=== PATIENT | female | born 1945 | race Caucasian/White ===

== ENCOUNTER → 2018-12-07 13:58 | Outpatient (CLI) | payer OTHER, SELFPAY ==
--- NOTE | 2018-12-07 | DI.MG.S_ITS ---
BILATERAL DIGITAL SCREENING MAMMOGRAM 3D/2D WITH CAD: 12/07/2018 CLINICAL: Routine screening. Personal history of right breast cancer. Comparison is made to exams dated: 06/03/2017 mammogram, 10/11/2014 mammogram, and 06/22/2013 mammogram - [facility]. There are scattered fibroglandular elements in both breasts. Current study was also evaluated with a Computer Aided Detection (CAD) system. There are benign post operative findings in the right breast. There also are benign calcifications in both breasts. No significant masses, calcifications, or other findings are seen in either breast. There has been no significant interval change. IMPRESSION: There is no mammographic evidence of malignancy. A 1 year screening mammogram is recommended. This exam was interpreted at Station ID: [id number]. NOTE: For mammograms, a report in lay terms will be sent to the patient. Approximately 15% of breast malignancies will not be visualized mammographically. In the management of a palpable breast mass, a negative mammogram must not discourage biopsy of a clinically suspicious lesion. Electronically Signed By: Luis joe/ry:12/07/2018 16:04:22 letter sent: Normal Exam ACR BI-RADS Category 2: Benign Finding(s) 3342F
== END ==
PROVIDERS: PCP Family Medicine; Visit Provider Family Medicine
DX: Z12.31 Encounter for screening mammogram for malignant neoplasm of breast (principal); Z85.3 Personal history of malignant neoplasm of breast
CPT/HCPCS: 77063; 77067

== ENCOUNTER 2019-10-08 17:14 | Emergency (ER) | payer MEDICARE, OTHER, SELFPAY ==
[2019-10-08 17:27] VITALS: BP 202/94; PULSE 75; RESP 16; TEMP 36.9; O2SAT 97
[2019-10-08 17:30] VITALS: BP 185/88; PULSE 73; RESP 16; O2SAT 98
--- NOTE | 2019-10-08 17:52 | DI.CT.S_ITS ---
PROCEDURE: CT ABDOMEN PELVIS W CON INDICATIONS: generalized abd pain, fever, hx hystrectomy TECHNIQUE: After the administration of intravenous contrast, 5 mm thick sections acquired from the diaphragm to the symphysis. 5 mm coronal and sagittal reformats were acquired. For radiation dose reduction, the following was used: automated exposure control, adjustment of mA and/or kV according to patient size. COMPARISON: None. FINDINGS: Image quality: Excellent. ABDOMEN: Lung bases: Lung bases are clear. Heart size is normal. Solid organs: Liver is normal in size and enhancement. Occasional tiny cysts. Gallbladder is partially decompressed.. Biliary system is non dilated. Pancreas enhances normally. Spleen is normal in size and enhancement. No adrenal nodules. Kidneys demonstrate normal size and enhancement, without hydronephrosis. Nonobstructing 6 mm ovoid calcification in the right upper pole. Peritoneum and bowel: There is a normal appendix in the right lower quadrant. Normal amount of solid stool is present in the proximal colon. Multiple diverticula are present in the descending colon. There is a short segment of focal pericolonic inflammation in the proximal sigmoid colon where there is also eccentric wall thickening present. A few diverticula are present in this area. No definite extraluminal gas. No associated fluid collection. Small bowel loops are nonobstructed. The stomach is partially decompressed. Nodes and vessels: No retroperitoneal or mesenteric adenopathy by size criteria. Aorta and inferior vena cava are normal in size. Miscellaneous: There is small fat containing umbilical hernia. PELVIS: Genitourinary: Bladder wall thickness is normal. The uterus is diminutive, age-appropriate. Miscellaneous: No inguinal hernias or adenopathy. Trace amount of free fluid is present posteriorly in the pelvis. Bones: No suspicious bony lesions. No vertebral body compression fractures. Degenerative scoliosis of lumbar spine. IMPRESSION: 1. Short segment of inflammatory change involving proximal sigmoid colon. This is likely secondary to diverticulitis, although an inflammatory process or carcinoma is not excluded. Colonoscopy is recommended after the patient's acute illness resolves. 2. Diverticulosis is present elsewhere in the colon. 3. Nonobstructing 6 mm right intrarenal calcification. Dictated by: Camelia Farr M.D. on 10/08/2019 at 18:43 Approved by: Camelia Farr M.D. on 10/08/2019 at 18:54
[2019-10-08 17:54] LABS: Add Manual Diff / Slide Review NO; Basophils Absolute Auto 100 /uL (0-100); Basophils Percent Auto 0.9 % (0-2); Eosinophils Absolute Auto 100 /uL (0-450); Eosinophils Percent Auto 1.2 % (2-4); Hematocrit 38.1 % (36-46); Hemoglobin 12.9 g/dL (12.0-16.0); Lymphocytes Absolute Auto 1900 /uL (1100-4500); Lymphocytes Percent Auto 21.5 % (25-40); Mean Corpuscular HGB Conc 33.7 % (30-36); Mean Corpuscular Hemoglobin 30.2 PG (26-34); Mean Corpuscular Volume 89.7 fL (80-100); Monocytes Absolute Auto 500 /uL (0-900); Monocytes Percent Auto 5.7 % (3-14); Neutrophils Absolute Auto 6200 /uL (1500-7000); Neutrophils Percent Auto 70.7 % (50-75); Platelet Count 207 X10^3/uL (150-400); Red Blood Cell Count 4.25 X10^6/uL (4.0-5.2); Red Cell Distribution Width 13.5 % (11.6-14.8); White Blood Cell Count 8.8 X10^3/uL (4.5-11.0)
[2019-10-08 17:55] LABS: Prothrombin Time 11.4 SECONDS (10.1-12.7)
[2019-10-08 17:58] LABS: Alanine Aminotransferase 13 IU/L (<35); Albumin 4.3 g/dL (3.5-5.0); Albumin Globulin Ratio 1.3 (1.0-2.8); Alkaline Phosphatase 85 U/L (38-126); Aspartate Aminotransferase 23 IU/L (14-36); BUN Creatinine Ratio 19.7 (6-22); Bilirubin Total 0.8 mg/dL (0.2-1.3); Blood Urea Nitrogen 12 mg/dL (7-17); Calcium 9.7 mg/dL (8.4-10.2); Carbon Dioxide 30 mmol/L (22-32); Chloride 103 mmol/L (98-107); Estimated Glomerular Filt Rate > 60.0 mL/min (>60); Globulin 3.3 g/dL (1.7-4.1); Glucose 99 mg/dL (80-110); HEMOLYSIS < 15 (0-50); Lipase 126 U/L (23-300); PTT Partial Thromboplastin Tim 30 SECONDS (26.4-36.2); Sodium 136 mmol/L (137-145); Total Protein 7.6 g/dL (6.3-8.2)
[2019-10-08 18:02] LABS: Bacteria Urine Occasional (0-1); Culture Indicated Urine Specimen Cultured; RBC Urine 1-5/HPF (0-5/HPF); Squamous Epithelial Cell Urine 0-1 /HPF (0-5/HPF); WBC Urine 1-5/HPF (0-5/HPF)
--- NOTE | 2019-10-08 18:22 | ED_ITS ---
HPI - Abdominal Pain <VIRGEN Gomes - Last Filed: 10/08/19 19:58> General Chief Complaint: Abdominal Pain Stated Complaint: abdomen pain, thinks appendicitis Time Seen by Provider: 10/08/19 17:23 Source: patient Mode of arrival: Ambulatory Limitations: no limitations History of Present Illness HPI narrative: This is a 74-year-old female, nonsmoker, who presents to ED with her spouse from [place] after she was referred by APPLIQUER Yamilet Rangel for further evaluation for abdominal pain for appendicitis and positive urine test. Patient reports she woke up yesterday morning not feeling well and as the day progressed she had bloated abdomen but without discomfort during afternoon. During the later in the evening, patient had chills and T-max of 99? and cramping abdominal pain. Pain worsens when lays on left side of her body, ambulation and describes as whole inside is jostled. Pain is intermittent and recurring about every 5 minutes in generalize abdomen with mild back aches. Patient denies nausea or vomiting, urinary symptoms, hematuria, blood in her stool. Last bowel movement was normal which was this morning. Last meal was taken at 1:00 p.m. today with oral fluid intake at 3:30 p.m.. Patient reports decreased appetite for last couple of days. Patient reports had right breast surgery 3 weeks ago at [facility] for infection after she had lum pectomy/radiation therapy for right breast cancer about 10 years ago. Patient is not currently taking any medications. Patient has history of a hysterectomy and a few orthopedic surgeries in the past. Related Data Previous Rx's Medication Instructions Recorded ciprofloxacin HCl [Cipro] 500 mg PO BID 10 Days #20 tab 10/08/19 metronidazole [Flagyl] 500 mg PO TID 10 Days #30 tab 10/08/19 Allergies Allergy/AdvReac Type Severity Reaction Status Date / Time epinephrine [EPINEPHRINE] AdvReac Mild super Verified 10/08/19 17:44 amarilys Review of Systems <VIRGEN Gomes - Last Filed: 10/08/19 19:58> Review of Systems Narrative: General: Denies (+) mild fever and chills, fatigue, (+) malaise, sweats. HEENT: Denies sinus pain, ear pain, sore throat, difficulty swallowing, dizziness. Respiratory: Denies dyspnea, cough, wheezing, hemoptysis, sputum. Cardiovascular: Denies chest pain, palpitations, orthopnea, edema. Gastrointestinal: See HPI : Denies dysuria, frequency, incontinence, hematuria, urinary retention. Musculoskeletal: Denies weakness, joint pain or bony pain. Skin: Denies rash, skin lesions, or other. Neurologic: Denies weakness, headache, numbness, change in speech, confusion, seizures, incoordination. Psychiatric: No concerning psychosocial issues. 12-point review of systems is negative except for those stated above. Patient History <VIRGEN Gomes - Last Filed: 10/08/19 19:58> Medical History Ankle fracture (Acute) Diverticulitis (Acute) Wrist fracture (Acute) Surgical History H/O breast surgery (Acute) H/O: hysterectomy (Acute) History of bunionectomy (Acute) History of lumpectomy Status post hysterectomy Family History Child Age: 52 Mental health problem Grandmother Hypertension Sister Age: 67 Mental health problem Social History Smoking Status: Never smoker Smoking Status: Never smoker alcohol intake frequency: 0-2 drinks per day Alcohol type: wine Exam <VIRGEN Gomes - Last Filed: 10/08/19 19:58> Narrative Exam Narrative: GEN: Alert, oriented x 3, well appearing and nourished, and in no acute distress. Head: Normal cephalic, atraumatic. No scalp or temporal tenderness, palpable mass or rash. EYES: Pupils are equal, round, and reactive to light and accommodation. Extraocular muscles are intact bilaterally. There is no subconjunctival hemorrh age, exudate and sclera non-icteric. ENT: Bilateral auditory canals and tympanic membranes clear. Hearing grossly intact. Nose without bleeding, purulent discharge or deviation. Facial sinuses nontender to palpate. Mucous membrane moist, no mucosal lesion. Throat without erythema, tonsillar hypertrophy or exudate. Uvula in midline, airway patent. Neck: Trachea in midline. No JVD, non-tender without lymphadenopathy. No masses or thyroid megaly. Supple, non-tender and no meningeal signs. CARDIAC: Normal regular rate and rhythm without murmurs, gallops, or rubs. No chest wall tenderness. No peripheral edema, cyanosis or pallor. Capillary refill is less than 2 seconds. RESPIRATORY: Lungs are clear to auscultate bilaterally. No cough, wheezes, rales, or rhonchi. No stridor, respiratory distress, increase work of breathing, or accessary muscle used. ABD: Abdomen mildly distended tender to palpate in all quadrants. No guarding or rebound tenderness to palpate. Bowel sounds are normal in all 4 quadrants, slightly hyperactive in left quadrants. There is no palpable masses or organomegaly. EXT: Full painless ROM of all extremities with no loss of sensation, strength, effusion or edema. SKIN: Transverse upper right breast surgical incision site without signs of infection such as redness, warmth, swelling, drainage. Warm, dry, normal color for patient. No erythema, lesions or rash over other visible areas. BACK: Nontender without deformity or crepitance. No flank tenderness. NEUROLOGICAL: Alert and oriented to place, time and person. Sensation and motor function intact bilaterally. No facial droops, dysphasia. PSYCHIATRIC: Good judgement and reason, without hallucinations, abnormal affect or abnormal behaviors during the examination. Initial Vital Signs Initial Vital Signs: Vital Signs Temperature 98.4 F 10/08/19 17:27 Pulse Rate 75 10/08/19 17:27 Respiratory Rate 16 10/08/19 17:27 Blood Pressure 202/94 H 10/08/19 17:27 Pulse Oximetry 97 10/08/19 17:27 <Jose A Fabian DO - Last Filed: 10/09/19 07:30> Initial Vital Signs Initial Vital Signs: Vital Signs Temperature 98.4 F 10/08/19 17:27 Pulse Rate 75 10/08/19 17:27 Respiratory Rate 16 10/08/19 17:27 Blood Pressure 202/94 H 10/08/19 17:27 Pulse Oximetry 97 10/08/19 17:27 Scores <VIRGEN Gomes - Last Filed: 10/08/19 19:58> GCS Bree coma scale eye opening: Spontaneous Boyden coma scale verbal response: Orientated Bree coma scale motor response: Obey commands Boyden coma scale total score: 15 Course <VIRGEN Gomes - Last Filed: 10/08/19 19:58> Orders Ordered: Discontinued Medications Ciprofloxacin (Cipro) 500 mg PO NOW ONE Stop: 10/08/19 19:18 Last Admin: 10/08/19 19:27 Dose: 500 mg Documented by: PROSPER Metronidazole (Metronidazole) 500 mg PO NOW ONE Stop: 10/08/19 19:18 Last Admin: 10/08/19 19:27 Dose: 500 mg Documented by: PROSPER Vital Signs Vital signs: Vital Signs - 8 hr 10/08/19 17:27 10/08/19 17:30 Temperature 98.4 F Pulse Rate 75 73 Respiratory Rate 16 16 Blood Pressure 202/94 H Blood Pressure [Right Arm] 185/88 H Pulse Oximetry 97 98 <Jose A Fabian DO - Last Filed: 10/09/19 07:30> Orders Ordered: Discontinued Medications Ciprofloxacin (Cipro) 500 mg PO NOW ONE Stop: 10/08/19 19:18 Last Admin: 10/08/19 19:27 Dose: 500 mg Documented by: PROSPER Metronidazole (Metronidazole) 500 mg PO NOW ONE Stop: 10/08/19 19:18 Last Admin: 10/08/19 19:27 Dose: 500 mg Documented by: PROSPER Vital Signs Vital signs: Vital Signs - 8 hr 10/08/19 17:27 10/08/19 17:30 Temperature 98.4 F Pulse Rate 75 73 Respiratory Rate 16 16 Blood Pressure 202/94 H Blood Pressure [Right Arm] 185/88 H Pulse Oximetry 97 98 MDM - Abdominal Pain <VIRGEN Gomes - Last Filed: 10/08/19 19:58> Differential Diagnosis Differential diagnosis: Likely acute appendicitis, calculus of kidney, diverticulitis, small bowel obstruction and other (Kidney infection, UTI) Medical Records Attestation: I reviewed the patient's medical records. Lab Data Attestation: I reviewed the patient's lab results. Result diagrams: 10/08/19 17:23 10/08/19 17:23 Labs: Lab Results 10/08/19 10/08/19 10/08/19 Range/Units 17:23 17:23 17:23 WBC 8.8 (4.5-11.0) X10^3/uL RBC 4.25 (4.0-5.2) X10^6/uL Hgb 12.9 (12.0-16.0) g/dL Hct 38.1 (36-46) % MCV 89.7 (80-100) fL MCH 30.2 (26-34) PG MCHC 33.7 (30-36) % RDW 13.5 (11.6-14.8) % Plt Count 207 (150-400) X10^3/uL Neut % (Auto) 70.7 (50-75) % Lymph % (Auto) 21.5 L (25-40) % [place] % (Auto) 5.7 (3-14) % Eos % (Auto) 1.2 L (2-4) % Baso % (Auto) 0.9 (0-2) % Neut # (Auto) 6200 (6298-6168) /uL Lymph # (Auto) 1900 (6503-7360) /uL [place] # (Auto) 500 (0-900) /uL Eos # (Auto) 100 (0-450) /uL Baso # (Auto) 100 (0-100) /uL PT 11.4 (10.1-12.7) SECONDS INR 1.0 (0.9-1.3) APTT 30 (26.4-36.2) SECONDS Sodium 136 L (137-145) mmol/L Potassium 4.0 (3.4-5.1) mmol/L Chloride 103 (98-107) mmol/L Carbon Dioxide 30 (22-32) mmol/L BUN 12 (7-17) mg/dL Creatinine 0.61 (0.52-1.04) mg/dL Estimated GFR > 60.0 (>60) mL/min BUN/Creatinine Ratio 19.7 (6-22) Glucose 99 (80-110) mg/dL Calcium 9.7 (8.4-10.2) mg/dL Total Bilirubin 0.8 (0.2-1.3) mg/dL AST 23 (14-36) IU/L ALT 13 (<35) IU/L Alkaline Phosphatase 85 (38-126) U/L Total Protein 7.6 (6.3-8.2) g/dL Albumin 4.3 (3.5-5.0) g/dL Globulin 3.3 (1.7-4.1) g/dL Albumin/Globulin Ratio 1.3 (1.0-2.8) Lipase 126 (23-300) U/L Urine RBC (0-5/HPF) Urine WBC (0-5/HPF) Ur Squamous Epith Cells (0-5/HPF) Urine Bacteria (None) Ur Culture Indicated? 10/08/19 Range/Units 17:25 WBC (4.5-11.0) X10^3/uL RBC (4.0-5.2) X10^6/uL Hgb (12.0-16.0) g/dL Hct (36-46) % MCV (80-100) fL MCH (26-34) PG MCHC (30-36) % RDW (11.6-14.8) % Plt Count (150-400) X10^3/uL Neut % (Auto) (50-75) % Lymph % (Auto) (25-40) % [place] % (Auto) (3-14) % Eos % (Auto) (2-4) % Baso % (Auto) (0-2) % Neut # (Auto) (7071-4661) /uL Lymph # (Auto) (6342-3640) /uL [place] # (Auto) (0-900) /uL Eos # (Auto) (0-450) /uL Baso # (Auto) (0-100) /uL PT (10.1-12.7) SECONDS INR (0.9-1.3) APTT (26.4-36.2) SECONDS Sodium (137-145) mmol/L Potassium (3.4-5.1) mmol/L Chloride (98-107) mmol/L Carbon Dioxide (22-32) mmol/L BUN (7-17) mg/dL Creatinine (0.52-1.04) mg/dL Estimated GFR (>60) mL/min BUN/Creatinine Ratio (6-22) Glucose (80-110) mg/dL Calcium (8.4-10.2) mg/dL Total Bilirubin (0.2-1.3) mg/dL AST (14-36) IU/L ALT (<35) IU/L Alkaline Phosphatase (38-126) U/L Total Protein (6.3-8.2) g/dL Albumin (3.5-5.0) g/dL Globulin (1.7-4.1) g/dL Albumin/Globulin Ratio (1.0-2.8) Lipase (23-300) U/L Urine RBC 1-5/hpf (0-5/HPF) Urine WBC 1-5/hpf (0-5/HPF) Ur Squamous Epith Cells 0-1 /hpf (0-5/HPF) Urine Bacteria Occasional (0-1) (None) Ur Culture Indicated? Specimen cultured Point of care testing: Urine Dip Bedside Urine Glucose Negative Bedside Urine Bilirubin - Negative Bedside Urine Ketone - Negative Urine Specific [place]y 1.010 Bedside Urine Occult Blood +/- Bedside Urine pH 7.0 Bedside Urine Protein - Negative Bedside Urine Urobilinogen - Negative Bedside Urine Nitrite - Negative Bedside Urine Leukocytes +/- [address] scan - abdomen/pelvis: Radiologist's Impression: [address] [id number] [address] Scan Report Signed Patient: Cornelia Tomlinson AMR#: [id number] : 6Acct:[id number] Age/Sex: 74 / FDate of Service: 10/08/19 Loc: ED Accession Number: [id number] Procedure: CT abdomen pelvis w con Ordering Provider: Parrish Siddiqi PROCEDURE: CT ABDOMEN PELVIS W CON INDICATIONS: generalized abd pain, fever, hx hystrectomy TECHNIQUE: After the administration of intravenous contrast, 5 mm thick sections acquired from the diaphragm to the symphysis. 5 mm coronal and sagittal reformats were acquired. For radiation dose reduction, the following was used: automated exposure control, adjustment of mA and/or kV according to patient size. COMPARISON: None. FINDINGS: Image quality: Excellent. ABDOMEN: Lung bases: Lung bases are clear. Heart size is normal. Solid organs: Liver is normal in size and enhancement. Occasional tiny cysts. Gallbladder is partially decompressed.. Biliary system is non dilated. Pancreas enhances normally. Spleen is normal in size and enhancement. No adrenal nodules. Kidneys demonstrate normal size and enhancement, without hydronephrosis. Nonobstructing 6 mm ovoid calcification in the right upper pole. Peritoneum and bowel: There is a normal appendix in the right lower quadrant. Normal amount of solid stool is present in the proximal colon. Multiple diverticula are present in the descending colon. There is a short segment of focal pericolonic inflammation in the proximal sigmoid colon where there is also eccentric wall thickening present. A few diverticula are present in this area. No definite extraluminal gas. No associated fluid collection. Small bowel loops are nonobstructed. The stomach is partially decompressed. Nodes and vessels: No retroperitoneal or mesenteric adenopathy by size criteria. Aorta and inferior vena cava are normal in size. Miscellaneous: There is small fat containing umbilical hernia. PELVIS: Genitourinary: Bladder wall thickness is normal. The uterus is diminutive, age-appropriate. Miscellaneous: No inguinal hernias or adenopathy. Trace amount of free fluid is present posteriorly in the pelvis. Bones: No suspicious bony lesions. No vertebral body compression fractures. Degenerative scoliosis of lumbar spine. IMPRESSION: 1. Short segment of inflammatory change involving proximal sigmoid colon. This is likely secondary to diverticulitis, although an inflammatory process or carcinoma is not excluded. Colonoscopy is recommended after the patient's acute illness resolves. 2. Diverticulosis is present elsewhere in the colon. 3. Nonobstructing 6 mm right intrarenal calcification. Dictated by: Camelia Farr M.D. on 10/08/2019 at 18:43 Approved by: Camelia Farr M.D. on 10/08/2019 at 18:54 MDM Narrative Medical decision making narrative: This is a 74-year-old female presents to ED with generalized bloated abdomen with cramping discomfort in generalized abdomen with chills and increased temperature for last 2 days. UA test shows urine leukoesterase and occult blood. Urine culture is pending. Patient's abdomen feels soft, mildly distended without rebound tenderness. Hyper active bowel sounds in left quadrant. Patient reports increasing tenderness in left quadrant to palpate. There is no flank tenderness to percuss. Patient is afebrile and slightly hypertensive when she arrived to ED. CBC and chemistry tests were unremarkable with normal lipase. Abdomen/pelvis CT test shows short-segment of inflammatory changes involving proximal sigmoid colon which is likely due to get diverticulitis. There was diverticulosis present in descending colon. There is no small bowel obstruction appreciated. There is no definite extraluminal gas or associated fluid seen. He was recommended to follow-up with colonoscopy when acute illness resolves to rule out other inflammatory causes or carcinoma. Patient advised to take clear liquid diet for next 2-3 days and to advance to bland diet and to prevent constipation afterwards. Patient was treated with 1st dose of Cipro and Flagyl while in ED and discharged to home with 10 day course of these medications. Patient reports she has not had any nausea or vomiting and is able to hydrate well and will try outpatient therapy with antibiotic medication. Strict return precaution was discussed with the patient and patient advised to follow up with PCP in next few days for re-evaluation for abdominal pain, elevated blood pressure while in ED. patient and spouse verbalized understanding and in agreement with treatment plan. <Jose A Fabian, DO - Last Filed: 10/09/19 07:30> Lab Data Labs: Lab Results 10/08/19 10/08/19 10/08/19 Range/Units 17:23 17:23 17:23 WBC 8.8 (4.5-11.0) X10^3/uL RBC 4.25 (4.0-5.2) X10^6/uL Hgb 12.9 (12.0-16.0) g/dL Hct 38.1 (36-46) % MCV 89.7 (80-100) fL MCH 30.2 (26-34) PG MCHC 33.7 (30-36) % RDW 13.5 (11.6-14.8) % Plt Count 207 (150-400) X10^3/uL Neut % (Auto) 70.7 (50-75) % Lymph % (Auto) 21.5 L (25-40) % [place] % (Auto) 5.7 (3-14) % Eos % (Auto) 1.2 L (2-4) % Baso % (Auto) 0.9 (0-2) % Neut # (Auto) 6200 (7137-6201) /uL Lymph # (Auto) 1900 (3336-7505) /uL [place] # (Auto) 500 (0-900) /uL Eos # (Auto) 100 (0-450) /uL Baso # (Auto) 100 (0-100) /uL PT 11.4 (10.1-12.7) SECONDS INR 1.0 (0.9-1.3) APTT 30 (26.4-36.2) SECONDS Sodium 136 L (137-145) mmol/L Potassium 4.0 (3.4-5.1) mmol/L Chloride 103 (98-107) mmol/L Carbon Dioxide 30 (22-32) mmol/L BUN 12 (7-17) mg/dL Creatinine 0.61 (0.52-1.04) mg/dL Estimated GFR > 60.0 (>60) mL/min BUN/Creatinine Ratio 19.7 (6-22) Glucose 99 (80-110) mg/dL Calcium 9.7 (8.4-10.2) mg/dL Total Bilirubin 0.8 (0.2-1.3) mg/dL AST 23 (14-36) IU/L ALT 13 (<35) IU/L Alkaline Phosphatase 85 (38-126) U/L Total Protein 7.6 (6.3-8.2) g/dL Albumin 4.3 (3.5-5.0) g/dL Globulin 3.3 (1.7-4.1) g/dL Albumin/Globulin Ratio 1.3 (1.0-2.8) Lipase 126 (23-300) U/L Urine RBC (0-5/HPF) Urine WBC (0-5/HPF) Ur Squamous Epith Cells (0-5/HPF) Urine Bacteria (None) Ur Culture Indicated? 10/08/19 Range/Units 17:25 WBC (4.5-11.0) X10^3/uL RBC (4.0-5.2) X10^6/uL Hgb (12.0-16.0) g/dL Hct (36-46) % MCV (80-100) fL MCH (26-34) PG MCHC (30-36) % RDW (11.6-14.8) % Plt Count (150-400) X10^3/uL Neut % (Auto) (50-75) % Lymph % (Auto) (25-40) % [place] % (Auto) (3-14) % Eos % (Auto) (2-4) % Baso % (Auto) (0-2) % Neut # (Auto) (3526-9438) /uL Lymph # (Auto) (3750-9530) /uL [place] # (Auto) (0-900) /uL Eos # (Auto) (0-450) /uL Baso # (Auto) (0-100) /uL PT (10.1-12.7) SECONDS INR (0.9-1.3) APTT (26.4-36.2) SECONDS Sodium (137-145) mmol/L Potassium (3.4-5.1) mmol/L Chloride (98-107) mmol/L Carbon Dioxide (22-32) mmol/L BUN (7-17) mg/dL Creatinine (0.52-1.04) mg/dL Estimated GFR (>60) mL/min BUN/Creatinine Ratio (6-22) Glucose (80-110) mg/dL Calcium (8.4-10.2) mg/dL Total Bilirubin (0.2-1.3) mg/dL AST (14-36) IU/L ALT (<35) IU/L Alkaline Phosphatase (38-126) U/L Total Protein (6.3-8.2) g/dL Albumin (3.5-5.0) g/dL Globulin (1.7-4.1) g/dL Albumin/Globulin Ratio (1.0-2.8) Lipase (23-300) U/L Urine RBC 1-5/hpf (0-5/HPF) Urine WBC 1-5/hpf (0-5/HPF) Ur Squamous Epith Cells 0-1 /hpf (0-5/HPF) Urine Bacteria Occasional (0-1) (None) Ur Culture Indicated? Specimen cultured Point of care testing: Urine Dip Bedside Urine Glucose Negative Bedside Urine Bilirubin - Negative Bedside Urine Ketone - Negative Urine Specific [place] 1.010 Bedside Urine Occult Blood +/- Bedside Urine pH 7.0 Bedside Urine Protein - Negative Bedside Urine Urobilinogen - Negative Bedside Urine Nitrite - Negative Bedside Urine Leukocytes +/- 15 Esterase Discharge Plan Departure Patient Disposition: Home Clinical Impression: Diverticulitis of sigmoid colon Discharge Date/Time: 10/08/19 19:59 Instructions: Diverticulitis Activity Restrictions/Additional Instructions: You have been diagnosed with [short segment of inflammatory changes involving sigmoid colon likely to diverticulitis. There was diverticulosis present els ewhere in the colon. Incidental finding of nonobstructing 6 mm right intrarenal calcification. CBC and chemistry tests were unremarkable. Urine is pending for culture for positive urine leukocyte esterase and occult blood. Please follow-up with your primary care physician to schedule a colonoscopy to rule out other inflammatory causes in colon. ]. What to do: *Take your medications as directed. You were medicated with 1st dose of Cipro and Flagyl while in ED. please continue to take the Cipro twice a day for next 10 days and Flagyl 3 times a day for 10 days. Please avoid alcohol drinks while your on Flagyl plus a day or 2 afterwards. Please take clear liquid diet for next 2-3 days and you can advance to bland diet after that. After your symptoms improved than please prevent getting constipated. *Follow up with your primary care provider in 2-3 days, call for an appointment. Let them know you were seen in the ED and that we asked you to be seen in follow up. *Return to ED if you have any new, worsening, or concerning symptoms, such as [chest pain, breathing difficulty, severe abdominal pain, high fever, chills, unable to tolerate fluids, distended and hard abdomen, blood in her stool or any acute concerns]. Prescriptions: New metronidazole [Flagyl] 500 mg tablet 500 mg PO TID 10 Days Qty: 30 RF: 0 ciprofloxacin HCl [Cipro] 500 mg tablet 500 mg PO BID 10 Days Qty: 20 RF: 0 Referrals: Daniel Callahan MD [Primary Care Provider] - <Jose A Fabian, - Last Filed: 10/09/19 07:30> Cosign ED Attending Cosignature Attestation: Dr Fabian Co-Sign Statement: I was av ailable for consultation during this patient's emergency department visit. This chart is signed by myself for administrative purposes only. I did not have direct contact with this patient during this visit. They were seen independently by the APC.
[2019-10-08] MEDS: metroNIDAZOLE 250 MG TABLET 500 MG PO (19:27)
[2019-10-08] MEDS: CIPROFLOXACIN 500 MG TABLET PO (19:27)
[2019-10-08 19:57] VITALS: BP 181/91; PULSE 71; RESP 16; O2SAT 98
== END 2019-10-08 19:59 | disposition home or self-care (01) ==
PROVIDERS: Emergency Provider Nurse Practitioner Family; PCP Family Medicine
DX: K57.32 Diverticulitis of large intestine without perforation or abscess without bleeding (principal)
CPT/HCPCS: 36415; 74177; 80053; 81003; 81015; 83690; 85025; 85610; 85730; 87086; 99284

== ENCOUNTER → 2020-04-17 08:12 | Outpatient (CLI) | payer MEDICARE, SELFPAY ==
--- NOTE | 2020-04-17 | DI.CT.S_ITS ---
PROCEDURE: CT HEAD/BRAIN WO/W CON INDICATIONS: Migraine without aura, intractable TECHNIQUE: 4.5 mm thick angled axial sections acquired from the foramen magnum to the vertex both before and after the administration of intravenous contrast, with coronal and sagittal reformats. For radiation dose reduction, the following was used: automated exposure control, adjustment of mA and/or kV according to patient size. COMPARISON: None. FINDINGS: Image quality: Excellent. CSF spaces: Basal cisterns are patent. No extra-axial fluid collections. Ventricles are symmetric in size and shape. Brain: No midline shift. No intracranial bleeds or masses. No abnormal intracranial enhancement. There is mild cerebral volume loss for age. There is mild periventricular white matter chronic small vessel ischemic change. There is intracranial internal carotid artery atherosclerosis. Skull and face: Calvarium and visualized facial bones appear intact, without suspicious lesions. Sinuses: Visualized sinuses and mastoids are clear. IMPRESSION: 1. No acute intracranial abnormalities. 2. Mild cerebral volume loss and chronic microvascular ischemic changes. Dictated by: Rudolph Crawford M.D. on 04/17/2020 at 8:38 Approved by: Rudolph Crawford M.D. on 04/17/2020 at 18:34
== END ==
PROVIDERS: PCP Family Medicine; Referring Provider Family Medicine; Visit Provider Nurse Practitioner Family
DX: G43.019 Migraine without aura, intractable, without status migrainosus (principal)
CPT/HCPCS: 70470; Q9967

== ENCOUNTER → 2020-12-07 09:27 | Outpatient (CLI) | payer MEDICARE, SELFPAY ==
--- NOTE | 2020-12-07 | DI.MG.S_ITS ---
BILATERAL DIGITAL SCREENING MAMMOGRAM 3D/2D WITH CAD: 12/07/2020 CLINICAL: Routine screening. Personal history of right breast cancer. Family history of breast cancer. Comparison is made to exams dated: 12/07/2018 mammogram, 06/03/2017 mammogram, and 10/11/2014 mammogram - [facility]. There are scattered fibroglandular elements in both breasts. Current study was also evaluated with a Computer Aided Detection (CAD) system. There are benign post operative findings in the right breast. No significant masses, calcifications, or other findings are seen in either breast. There has been no significant interval change. IMPRESSION: BENIGN There is no mammographic evidence of malignancy. A 1 year screening mammogram is recommended. This exam was interpreted at Station ID: [id number]. NOTE: For mammograms, a report in lay terms will be sent to the patient. Approximately 15% of breast malignancies will not be visualized mammographically. In the management of a palpable breast mass, a negative mammogram must not discourage biopsy of a clinically suspicious lesion. Electronically Signed By: Camelia tee/ry:12/07/2020 10:36:06 letter sent: Normal Exam ACR BI-RADS Category 2: Benign Finding(s) [id number]
== END ==
PROVIDERS: PCP Family Medicine; Referring Provider Family Medicine; Visit Provider Family Medicine
DX: Z12.31 Encounter for screening mammogram for malignant neoplasm of breast (principal)
CPT/HCPCS: 77063; 77067

== ENCOUNTER → 2021-04-17 12:30 | Outpatient (CLI) | payer MEDICARE, SELFPAY ==
--- NOTE | 2021-04-17 12:31 | DI.CT.S_ITS ---
PROCEDURE: CT CHEST WO CON INDICATIONS: screening for osteoporosis,Chronic cough TECHNIQUE: Noncontrast 5 mm thick sections acquired from the pulmonary apices to the posterior costophrenic angles. 1 mm lung window, 5 mm thick coronal and sagittal and 7 mm axial MIP reformats were then acquired. For radiation dose reduction, the following was used: automated exposure control, adjustment of mA and/or kV according to patient size. COMPARISON: None. FINDINGS: Image quality: Excellent. Lungs and pleura: No acute air space opacities. Scattered calcified granulomas. No pleural effusions or pneumothorax. Central and peripheral airways are patent and normal in caliber. Mediastinum: Heart size is normal. No pericardial effusion. No mediastinal adenopathy by size criteria. Thoracic aorta and central pulmonary arteries are normal in size. Esophagus is normal in caliber. No hiatal hernia. Bones and chest wall: Sclerotic focus in the left 12th rib, which may reflect a bone island or remote trauma. No vertebral body compression fractures. No axillary or supraclavicular adenopathy by size criteria. Thyroid gland is homogeneous. Abdomen: Visualized upper abdominal solid organs and bowel loops appear normal in the absence of contrast. IMPRESSION: No significant abnormality. Dictated by: Luca Yung M.D. on 04/17/2021 at 15:49 Approved by: Luca Yung M.D. on 04/17/2021 at 15:53
--- NOTE | 2021-04-17 12:31 | DI.RAD.S_ITS ---
PROCEDURE: XR DEXA AXIAL SKELETON INDICATIONS: screening for osteoporosis,Chronic cough COMPARISON: [facility], CR, DEXA AXIAL SKELETON, 06/22/2013, 10:48. FINDINGS: This blank DEXA report has been sent in error by the PACS system. The correct and complete report will be forthcoming in 1-2 days. Thank you for your patience and understanding. Dictated by: Luca Yung M.D. on 04/17/2021 at 16:04 Approved by: Luca Yung M.D. on 04/17/2021 at 16:04
== END ==
PROVIDERS: PCP Family Medicine; Referring Provider Family Medicine; Visit Provider Family Medicine
DX: M81.0 Age-related osteoporosis without current pathological fracture (principal); Z13.820 Encounter for screening for osteoporosis; R05.3 Chronic cough; Z78.0 Asymptomatic menopausal state; Z85.3 Personal history of malignant neoplasm of breast
CPT/HCPCS: 71250; 77080

== ENCOUNTER → 2024-03-23 09:10 | Outpatient (CLI) | payer MEDICARE, SELFPAY ==
--- NOTE | 2024-03-23 09:12 | DI.MG.S_ITS ---
BILATERAL DIGITAL SCREENING MAMMOGRAM 3D/2D WITH CAD POST LUMPECTOMY: 03/23/2024 CLINICAL: Routine screening. Personal history of right breast cancer.Family history of breast cancer. Comparison is made to exams dated: 12/07/2020 mammogram, 12/07/2018 mammogram, and 06/03/2017 mammogram - [facility]. There are scattered areas of fibroglandular density (category b / 25%-50% glandular tissue). Current study was also evaluated with a Computer Aided Detection (CAD) system. There are benign post operative findings in the right breast. No significant masses, calcifications, or other findings are seen in either breast. There has been no significant interval change. IMPRESSION: BENIGN There is no mammographic evidence of malignancy. A 1 year screening mammogram is recommended. This exam was interpreted at Station ID: [id number]. NOTE: For mammograms, a report in lay terms will be sent to the patient. Approximately 15% of breast malignancies will not be visualized mammographically. In the management of a palpable breast mass, a negative mammogram must not discourage biopsy of a clinically suspicious lesion. Electronically Signed By: Camelia tee/ry:03/24/2024 18:05:31 letter sent: Normal Exam ACR BI-RADS Category 2: Benign [id number]
== END ==
PROVIDERS: PCP Family Medicine; Referring Provider Family Medicine; Visit Provider Family Medicine
DX: Z12.31 Encounter for screening mammogram for malignant neoplasm of breast (principal); Z80.3 Family history of malignant neoplasm of breast
CPT/HCPCS: 77063; 77067

== ENCOUNTER 2024-05-25 07:41 | Emergency (ER) | payer MEDICARE, SELFPAY ==
[2024-05-25 08:11] VITALS: BP 189/88; PULSE 66; RESP 18; TEMP 36.2; O2SAT 98; BMI 21.1
--- NOTE | 2024-05-25 08:15 | DI.RAD.S_ITS ---
PROCEDURE: XR KNEE RT 3V INDICATIONS: pain TECHNIQUE: 3 views of the knee were acquired. COMPARISON: None. FINDINGS: Bones: No fractures or dislocations. Mild osteoarthritic changes of the right knee. No suspicious bony lesions. Soft tissues: Small joint effusion. No suspicious soft tissue calcifications. IMPRESSION: No acute osseous abnormality. If pain persists with conservative management, consider repeat x-ray in 10-14 days or cross-sectional imaging. Dictated by: Celio Acuna M.D. on 05/25/2024 at 8:57 Approved by: Celio Acuna M.D. on 05/25/2024 at 8:57
--- NOTE | 2024-05-25 08:40 | ED.EXTPRO ---
HPI - Extremity Problem General Chief complaint: Extremity Problem,Nontraumatic Stated complaint: r knee pain Time Seen by Provider: 05/25/24 08:40 Source: patient Mode of arrival: Ambulatory Limitations: no limitations History of Present Illness HPI Narrative: 78-year-old history of hypertension who presents with complaint of right knee pain she describes it as being a little bit more on the right side and radiates down towards the calf and up towards the thigh and hip area. Patient states she was occasionally had a little bit of discomfort but recently was seated yesterday for some time with her leg bent. When she went to get up was quite painful. She describes it as mostly on the medial side of the knee she noticed a little bit redness, warmth and swelling. She states movement makes it little bit worse but bending in particular. She can weightbear on it but is uncomfortable. She notes a little bit of swelling of the leg in general. Patient denies any numbness tingling or weakness. Patient states the radiation up into her thigh and down into her calf is different. Patient denies any other symptoms. She has not had any injuries to that knee or trauma recently. She does have remote history of ankle fracture or dislocation on the right. Patient states she has been taking [id number] medications for pain management but was quite uncomfortable last night. States she was takes blood pressure medication daily. Had reaction to epinephrine and Percocet described as her allergies. No tobacco, occasional alcohol, no recreational drugs. She does note she traveled to [place] and back by air in the last 2 weeks. Related Data Previous Rx's Medication Instructions Recorded tramadol 50 mg tablet 50 mg PO Q6H PRN pain #10 tabs 05/25/24 Allergies Allergy/AdvReac Type Severity Reaction Status Date / Time epinephrine [EPINEPHRINE] AdvReac Mild super Verified 10/08/19 17:44 amarilys Review of Systems Review of Systems ROS Unobtainable: All systems reviewed & are unremarkable except as noted in HPI and below Patient History Medical History (Updated 05/25/24 @ 09:32 by Liv Patel DO) Diverticulitis Ankle fracture Wrist fracture Surgical History H/O: hysterectomy History of bunionectomy H/O breast surgery History of lumpectomy Status post hysterectomy Family History Child Age: 57 Mental health problem Grandmother Hypertension Sister Age: 72 Mental health problem Social History Smoking Status: Never smoker Smoking Status: Never smoker alcohol intake frequency: 0-2 drinks per day Alcohol type: wine Substance Use Type: does not use Exam Narrative Exam Narrative: GENERAL: Alert and oriented x three, female in mild distress HEENT: Head normocephalic, atraumatic, EOMI, pupils reactive, face symmetric, moist mucous membranes NECK: Supple, full range of motion CARDIOVASCULAR: Regular rate and rhythm without murmurs, rubs or gallops. RESPIRATORY: Breath sounds equal bilaterally, no wheezes rales or rhonchi. ABDOMEN: Soft, nontender. Normoactive bowel sounds all 4 quadrants. No guarding or rebound, rigidity, no mass EXTREMITIES: Normal range of motion, no clubbing. Patient has a mild tenderness over the tibial plateau and medial knee, there is some slight erythema there is some slight swelling. Patient does not have any other bony tenderness of the foot, lower extremity knee or leg. She has full range of motion. She was able to stand on it. Patient has 2+ dorsalis pedis pulse. Normal sensation throughout. Negative calf squeeze. Neurovascularly intact. No joint laxity on testing she does have increased discomfort at the medial knee with varus. NEUROLOGICAL: Cranial nerves II through XII grossly intact. Moving all extremities SKIN: Warm, dry, no petechiae, no rashes or lesions. Initial Vital Signs Initial Vital Signs: Vital Signs Temperature 97.2 F L 05/25/24 08:11 Pulse Rate 66 05/25/24 08:11 Respiratory Rate 18 05/25/24 08:11 Blood Pressure 189/88 H 05/25/24 08:11 Pulse Oximetry 98 05/25/24 08:11 Oxygen Delivery Method Room Air 05/25/24 08:11 Course Orders Ordered: ED Orders 05/25/24 08:15 XR knee RT 3V Stat 05/25/24 08:53 perip venous low extrem rt Stat Vital Signs Vital signs: Vital Signs - 8 hr 05/25/24 08:11 Temperature 97.2 F L Pulse Rate 66 Respiratory Rate 18 Blood Pressure 189/88 H Pulse Oximetry 98 Oxygen Delivery Method Room Air MDM - Extremity (Nontraumatic) Imaging Data Extremity x-ray #1: Radiologist's Impression: Close Vascular Ultrasound 05/25/24 Knee X-Ray (Signed) Celio Acuna - 05/25/24 Mammogram Screening (Signed) Camelia Farr - 03/23/[address] (Signed) Natalio Yungie - 04/17/21 Bone Densitometry (Signed) BosqueLuca - 04/17/21 Mammogram Screening (Signed) Camelia Farr - 12/07/[address] (Signed) Adeola Crawford - 04/17/20 Abdomen/Pelvis CT (Signed) Camelia Farr - 10/08/19 Mammogram Screening (Signed) Luis Anderson - 12/07/18 [place] [address] XRay Report Signed Patient: Cornelia Tomlinson MR#: [id number] : 1945 Acct:[id number] Age/Sex: 78 / F Date of Service: 05/25/24 Loc: ED Accession Number: [id number] Procedure: XR knee RT 3V Ordering Provider: Liv Patel D.O. PROCEDURE: XR KNEE RT 3V INDICATIONS: pain TECHNIQUE: 3 views of the knee were acquired. COMPARISON: None. FINDINGS: Bones: No fractures or dislocations. Mild osteoarthritic changes of the right knee. No suspicious bony lesions. Soft tissues: Small joint effusion. No suspicious soft tissue calcifications. IMPRESSION: No acute osseous abnormality. If pain persists with conservative management, consider repeat x-ray in 10-14 days or cross-sectional imaging. Dictated by: Celio Acuna M.D. on 05/25/2024 at 8:57 Approved by: Celio Acuna M.D. on 05/25/2024 at 8:57 US - DVT: Radiologist's Impression: Cornelia Tomlinson??78??F??1945 ? Allergy/Adv: epinephrine Close Vascular Ultrasound (Signed) Celio Acuna - 05/25/24 Knee X-Ray (Signed) Celio Acuna - 05/25/24 Mammogram Screening (Signed) Camelia Farr - 03/23/[address] (Signed) Natalio Yungie - 04/17/21 Bone Densitometry (Signed) BosqueIsai gravesddie - 04/17/21 Mammogram Screening (Signed) Camelia Farr - 12/07/[address] (Signed) Adeola Crawford - 04/17/20 Abdomen/Pelvis CT (Signed) Camelia Farr - 10/08/19 Mammogram Screening (Signed) Luis Anderson - 12/07/18 [place]?[address] [address] Ultrasound Report Signed Patient: Cornelia Tomlinson MR#: [id number] : 1945 Acct:[id number] Age/Sex: 78 / F Date of Service: 05/25/24 Loc: ED Accession Number: [id number] Procedure: US periph venous low extrem rt Ordering Provider: Liv Patel D.O. PROCEDURE: US PERIPH VENOUS LOW EXTREM RT INDICATIONS: PAIN TECHNIQUE: Real-time imaging, as well as color and pulse Doppler interrogation, were performed of the lower extremity deep veins from the inguinal ligament to the popliteal fossa, with documentation of the visualized calf veins. COMPARISON: None. FINDINGS: The common femoral, femoral, popliteal, and the visualized calf veins are normally compressible, and free of intraluminal thrombus. Color and pulse Doppler demonstrate normal phasic intraluminal flow. There is normal augmentation response to distal compression maneuver. IMPRESSION: No findings of lower extremity deep venous thrombosis. Dictated by: Celio Acuna M.D. on 05/25/2024 at 9:39 Approved by: Celio Acuna M.D. on 05/25/2024 at 9:40 [facility] Narrative Medical decision making narrative: 78-year-old female with complaint of right knee pain on exam she was little bit more tender over the bone I suspect by her description being seated for some time and then rising to a standing position and exacerbating her pain that she was more of a musculoskeletal issue but notes some generalized swelling throughout the leg and the pain radiates into the calf and thigh has had recent long-distance air travel. X-ray and DVT ultrasound were obtained. Knee x-ray shows no acute change, small joint effusion. Mild osteoarthritic changes of the right knee. DVT US negative for DVT. Discussed with patient offered knee immobilizer she feels comfortable using the brace that she has had she was found a very helpful. She was taking ibuprofen up to 400 mg discussed she can use 600 mg every 6 hours and/or acetaminophen. We will give her a short course of pain medication if needed. She lives on [address] so we will give contact for Orthopedic surgery but discussed she can follow up with primary care as well if her symptoms are persisting. Discharge Plan Departure Patient Disposition: Home Clinical Impression: Knee pain, right Instructions: DI for Knee Pain Activity Restrictions/Additional Instructions: Follow up for recheck if your symptoms are not improving over the next week. Your imaging shows a small effusion at the joint and mild degenerative changes but no other major changes to the bone. You can take ibuprofen up to 600 mg every 6 hours and/or acetaminophen up to a 1000 mg every 6 hours as needed for pain. If inadequate for pain you can take tramadol 1 tablet every 6 hours as needed for pain. This medication can make you sleepy do not drive, perform hazardous activities or make any major decisions while taking it. This medication will make you constipated please take a stool softener once to twice daily until stools are soft and regular. Prescription sent to [facility]. Weightbear as tolerated Continue to use your knee brace if you find it helpful. Elevated affected body part to decrease swelling. OK to use ice pack on the affected body part. Use for 15-20 minutes each time, for 5-6x per day. If you develop worsening pain, numbness, tingling, discoloration of the affected body part either see your doctor for an urgent re-assessment, or return to the Emergency Department. Return to the Emergency Department for any new or worsening symptoms. Prescriptions: New tramadol 50 mg tablet 50 mg PO Q6H PRN (Reason: pain) Qty: 10 0RF Referrals: Anika Bowman MD [Primary Care Provider] - Stand Alone Forms: Patient Portal/API/Survey
--- NOTE | 2024-05-25 08:51 | PC.NURSE ---
Right knee swelling and warmness. Pt states the pain extends down to her ankle and up to her groin. Pt denies taking a blood thinner. Pt states she has no history of blood clots. Pt states she has had history of knee issues recently but the pain and swelling got worse after sitting for 2 hours at a table yesterday.
--- NOTE | 2024-05-25 08:53 | DI.US.S_ITS ---
PROCEDURE: US PERIPH VENOUS LOW EXTREM RT INDICATIONS: PAIN TECHNIQUE: Real-time imaging, as well as color and pulse Doppler interrogation, were performed of the lower extremity deep veins from the inguinal ligament to the popliteal fossa, with documentation of the visualized calf veins. COMPARISON: None. FINDINGS: The common femoral, femoral, popliteal, and the visualized calf veins are normally compressible, and free of intraluminal thrombus. Color and pulse Doppler demonstrate normal phasic intraluminal flow. There is normal augmentation response to distal compression maneuver. IMPRESSION: No findings of lower extremity deep venous thrombosis. Dictated by: Celio Acuna M.D. on 05/25/2024 at 9:39 Approved by: Celio Acuna M.D. on 05/25/2024 at 9:40
[2024-05-25 10:37] VITALS: BP 183/89; PULSE 61; RESP 17; O2SAT 99
== END 2024-05-25 10:40 | disposition home or self-care (01) ==
PROVIDERS: Emergency Provider Emergency Medicine; PCP Family Medicine
DX: M25.561 Pain in right knee (principal)
CPT/HCPCS: 73562; 93971; 99281; 99283

== ENCOUNTER → 2024-11-23 11:54 | Outpatient (CLI) | payer MEDICARE, SELFPAY ==
--- NOTE | 2024-11-23 11:55 | DI.RAD.S_ITS ---
PROCEDURE: XR KNEE 2V WB RIGHT INDICATIONS: right knee pain TECHNIQUE: 4 views of the knee were acquired. COMPARISON: None. FINDINGS: Bones: No fractures or dislocations. Moderate to severe tricompartmental osteoarthritis is seen more notably in medial femoral tibial compartment. No significant patellar subluxation. No suspicious bony lesions. Soft tissues: Large right suprapatellar joint effusion is seen. No suspicious soft tissue calcifications. IMPRESSION: No acute right knee fracture or dislocation. Moderate to severe tricompartmental osteoarthritis more notably in medial femoral tibial compartment. Moderate to large right suprapatellar joint effusion. Dictated by: Juan Mac M.D. on 11/23/2024 at 14:07 Approved by: Juan Mac M.D. on 11/23/2024 at 14:07
--- NOTE | 2024-11-23 14:59 | EKG_ITS ---
[address] [address] Test Date: 2024-11-23 Pat Name: Cornelia Tomlinson Department: [facility] Room: Gender: Female [employer] Employee: : 1945 Requested By: Order Number: [id number] Reading MD: Harshil Adler Measurements Intervals [place] Rate: 59 P: 69 [place]: 174 QRS: -26 QRSD: 92 T: 47 QT: 406 QTc: 401 Interpretive Statements Sinus bradycardia Possible Left atrial enlargement Incomplete right bundle branch block Electronically Signed On 11-24-2024 16:22:13 PDT by Harshil Adler
[2024-11-23 16:15] LABS: Add Manual Diff / Slide Review NO; Basophils Absolute Auto 0 /uL (0-100); Basophils Percent Auto 0.7 % (0-2); Eosinophils Absolute Auto 200 /uL (0-450); Eosinophils Percent Auto 2.6 % (2-4); Hematocrit 39.3 % (36-46); Hemoglobin 13.2 g/dL (12.0-16.0); Lymphocytes Absolute Auto 1600 /uL (1100-4500); Lymphocytes Percent Auto 24.3 % (25-40); Mean Corpuscular HGB Conc 33.5 % (30-36); Mean Corpuscular Hemoglobin 29.6 PG (26-34); Mean Corpuscular Volume 88.4 fL (80-100); Monocytes Absolute Auto 500 /uL (0-900); Neutrophils Absolute Auto 4200 /uL (1500-7000); Neutrophils Percent Auto 64.4 % (50-75); Platelet Count 243 X10^3/uL (150-400); Red Blood Cell Count 4.44 X10^6/uL (4.0-5.2); Red Cell Distribution Width 13.1 % (11.6-14.8); White Blood Cell Count 6.5 X10^3/uL (4.5-11.0)
[2024-11-23 16:43] LABS: Hemoglobin A1C% w Est Avg Glu 5.3 % (4.0-6.0)
[2024-11-23 16:54] LABS: Albumin 4.3 g/dL (3.5-5.0); BUN Creatinine Ratio 30.9 (6-22); Blood Urea Nitrogen 21 mg/dL (7-17); Calcium 9.3 mg/dL (8.4-10.2); Carbon Dioxide 28 mmol/L (22-32); Chloride 99 mmol/L (98-107); Estimated Glomerular Filt Rate > 60 mL/min (>60); Glucose 83 mg/dL (70-99); HEMOLYSIS < 15 (0-50); Potassium 3.9 mmol/L (3.4-5.1); Sodium 134 mmol/L (137-145)
[2024-11-23 17:02] LABS: Prealbumin 22.5 mg/dL (17.6-36.0)
[2024-11-23 18:01] LABS: Vitamin D 25 Hydroxy (D3) 50.6 ng/mL (30.0-100.0)
== END ==
PROVIDERS: PCP Family Medicine; Referring Provider Orthopaedic Surgery Adult Reconstructive Orthopaedic Surgery; Visit Provider Orthopaedic Surgery Adult Reconstructive Orthopaedic Surgery
DX: Z01.812 Encounter for preprocedural laboratory examination (principal); M25.561 Pain in right knee; Z00.00 Encounter for general adult medical examination without abnormal findings; M17.11 Unilateral primary osteoarthritis, right knee; M25.461 Effusion, right knee
CPT/HCPCS: 36415; 73564; 80048; 82040; 82306; 83036; 84134; 85025; 93005

== ENCOUNTER 2024-12-13 07:37 | Day surgery (SDC) | payer MEDICARE, SELFPAY ==
[2024-12-09 08:37] VITALS: BMI 21.9
[2024-12-13] VITALS (14 sets, daily range): BP systolic 136–189; BP diastolic 71–95; PULSE 59–73; RESP 12–20; TEMP 35.8–36.6; O2SAT 94–99; BMI 21.9
--- NOTE | 2024-12-13 09:16 | PM.PREOP ---
Pre-operative Note Interval Note History & Physical reviewed/Exam performed by Physician: Yes Changes to H&P: No
[2024-12-13] MEDS: LACTATED RINGERS 1,000 ML 42 ML IV ×2 (09:21→12:36)
--- NOTE | 2024-12-13 09:49 | DI.RAD.S_ITS ---
PROCEDURE: XR KNEE RT 1TO2V INDICATIONS: post-op unicompartmental knee TECHNIQUE: 2 view(s) of the knee acquired. COMPARISON: Outside Facility, CR, XR KNEE RT 4V, 06/17/2024, 10:47. FINDINGS: Bones: Patient is status post medial knee joint unicompartmental arthroplasty. Hardware components are in expected positions. Visualized bony structures are intact. Soft tissues: Overlying postoperative changes are noted. IMPRESSION: Expected post-operative appearance of a knee arthroplasty. Dictated by: Luis Anderson M.D. on 12/13/2024 at 22:17 Approved by: Luis Anderson M.D. on 12/13/2024 at 22:18
[2024-12-13] MEDS: TRANEXAMIC ACID 1,000 MG VIAL 2000 MG INJ (11:15)
[2024-12-13] MEDS: CEFAZOLIN 2 GM/100 ML PREMIX 100 ML IV ×2 (11:15→18:31)
--- NOTE | 2024-12-13 11:43 | SUR.OPER ---
Supine on padded OR bed. Pillow under head, arms secured on padded armboards <90 degree abduction. Safety belt across torso. Non-operative leg secured with tape over blanket over lower leg. Operative leg secured in DeMayo/Will/Nathe positioner. Foam padded brace at thigh of operative leg.
[2024-12-13] MEDS: ROPIVACAINE/EPI/CLONIDINE/KET 50 ML SYRINGE INJ (12:08)
--- NOTE | 2024-12-13 13:21 | PM.OP.1 ---
Operative Date/Time/Diagnoses Date of procedure: 12/13/24 Time of procedure: 11:00 Pre-op diagnosis: Medial compartment arthritis of right knee Post-op diagnosis: same Procedure & Clinicians Procedure: Medial unicompartmental knee arthroplasty with robotic assistance Same procedure as scheduled: Yes Surgeon: Nathaniel Manley Marketing Operations Analyst: Mely De Paz Anesthesia Type: General, Spinal, Peripheral nerve block and Local Operative Notes Findings: Medial compartment arthritis with intact lateral compartment cartilage and an intact ACL and PCL Estimated Blood Loss (mL): 75 Procedure in detail: Robotic assisted right medial unicompartmental knee arthroplasty using the Jasmine and NephNoom journey 2 system Implants: Size 5 Femoral Component Size 4 Tibial Component Size 8 mm Polyethylene Procedure Summary: This 79-year-old female patient had medially based pain associated with medial compartment arthritis and an MRI demonstrating absence of significant lateral wear as well as an intact lateral meniscus and ACL and no significant patellofemoral wear. We discussed at length total knee arthroplasty versus partial knee arthroplasty given her prior failure of numerous nonoperative modalities to control her pain. She wished to proceed with partial knee replacement despite the known increased risk of further surgery on the knee with partial knees as compared to total knees because of her strong desire to returned to yoga postoperatively which requires deep knee flexion and her hopes that she would be able to achieve more active knee flexion with a partial knee then with a total knee. Intraoperatively today I measured her preoperative varus deformity at 4? and this was measured at 3? after preparation for trials. She had deep gouges on the femoral and tibial sides of the medial compartment and exposure of subchondral bone particularly on the tibia. She had an intact ACL and intact lateral compartment. I recreated her [place] slope on the tibia of 5? and at the conclusion of the surgery she had appropriate balance. Procedure in Detail: This patient was seen preoperatively and evaluated for knee pain which was refractory to numerous nonoperative treatment modalities. Their pain correlated with radiographic changes demonstrating significant degeneration in the knee joint. The risks and benefits of continued nonoperative management versus operative management were discussed at length and all of the patient?s questions were answered. Additional educational materials providing further details beyond our discussion in clinic were provided via a publicly available patient education video which included the incidence of medical complications associated with total knee arthroplasty, reasons for revision following total knee arthroplasty, and patient satisfaction rates following unicompartmental knee arthroplasty. With this understanding of the risks inherent to the procedure, the patient elected to move forward with operative management. Following preoperative optimization, the patient was scheduled for surgery. The patient was met in the preoperative holding area the day of the procedure and all questions were answered. The patient?s nares were swabbed with betadine in order to decolonize them from MRSA. Informed consent was signed and the left limb was marked with indelible ink. The patient was brought back to the operating room where anesthesia was induced. The patient was transferred to the operating table and all bony prominences were padded. The operative site was prepped and draped in the usual sterile fashion. A second prep stick was utilized following drape placement. The incision was marked corresponding to the medial aspect of the tibial tubercle and the patella. Ioban was wrapped circumferentially around the knee. Prior to incision, tranexamic acid and cefazolin were administered. Templating images were displayed. A timeout procedure was performed verifying the patient?s identity, medical comorbidities, allergies, relevant medications, anesthesia type and the surgical plan. All present were in agreement. The assistance of a physician assistant director of plant operations was required for positioning, room setup, soft tissue retraction and wound closure. Without this assistance, the procedure would have been significantly more challenging and time consuming. ? The tourniquet was inflated prior to incision. I made an anterior incision over the knee, dissected through the subcutaneous tissues and identified the lateral border of the VMO. Medial and lateral soft tissue flaps were developed. A mid vastus arthrotomy was performed. ?I released tissue off of the proximal medial tibia. ?I inserted pins for the robotic rays into the femur and tibia. ?I mapped out the distal femur and proximal tibia using the robotic array and mapped out the hip knee ankle axis as well. ?I noted grossly that she had some recoil with knee hyperextension. ?The varus alignment was approximately 4 ? on the robotic array. ?I made a plan which would involve burring of the tibia and femur using the robotic system which would lead to appropriate knee balance once implants were placed and a postoperative varus alignment of 3 degrees. ?After reviewing all parameters on this plan I felt that it was appropriate and proceeded with burring. ?I initially burred the distal femur and the posterior femur followed by the proximal tibia. ?As bone was cleared out posteriorly on both the femoral and tibial side I switched back and forth until the cuts were completed. I used a single-sided reciprocating saw on the intercondylar eminence to create a flush surface to maximize medial-lateral width of the tibial component. I inserted trials. ?I found these had appropriate parameters both with my gross assessment and with the robotic assessment. ?I therefore implanted those components. ? All bony ends were copiously irrigated and dried. ?Cement was introduced. ?The tibial component was inserted and excess cement was removed ensuring no cement had leaked out the back of the knee. ?Cement was then placed on the femur and the femoral component was inserted while maintaining pressure on the anterior tibial base plate to prevent lift-off. ?A polyethylene insert trial was then placed. ?The knee was placed into full extension and allowed to dry. ?Once cement had dried excess cement was removed, the tourniquet was taken down, and I again trialed with the 2 mm and 3 mm spacer. ?I found that the 8 mm trial polyethylene had the correct gross kinematics on my assessment that I desired and I therefore placed the final polyethylene insert. ?The tissues were briefly soaked in peroxide and Betadine as a dilute mixture and then the knee was copiously irrigated. ?TXA was administered. The arthrotomy was closed with nonabsorbable interrupted suture as well as an absorbale running Vycril suture extending up into the VMO split ensuring that this extended to the top of the arthrotomy. This was backed up with running barbed suture throughout the arthrotomy. A barbed suture was used in the subcutaneous tissues. The skin was closed with 2-0 and 3-0 sutures. Surgical glue was applied and a soft dressing was placed. The sponge, instrument and needle counts were reported as being correct at the end of the case. ?No obvious complications occurred. The patient was transferred from the operating table back to a stretcher. The patient emerged from anesthesia without difficulty and was taken to the PACU in a stable condition. Plan for aftercare: - Weightbearing as tolerated - Mobilization as soon as the patient has recovered from anesthesia - Quiet knee protocol including oral tranexamic acid for 3 days - Aspirin 81 twice per day for DVT prophylaxis - Multimodal pain regimen with no IV opioids ordered - Anticipate discharge home tomorrow as the patient will need to take a [place] home and has someone coming to [place] - Follow up at [facility] in 2 weeks - Detailed postoperative instructions available at [email or web address] Complications: none
[2024-12-13] MEDS: ACETAMINOPHEN IV 1,000 MG/100 ML VIAL 400 MG IV (13:22)
--- NOTE | 2024-12-13 13:22 | PT-IP ANOTE ---
PT consult received. There is currently no op report. PT will con't to follow in chart. It appears that pt is being transferred up to floor to room 206.
--- NOTE | 2024-12-13 14:09 | PT-IP ANOTE ---
PT checked on pt in the PACU and spinal is wearing off and she is not yet ready for PT. Per nsg, she is coming up to floor and will spend the night [place] tomorrow. Spoke with nsg who can get pt OOB when she is up on floor and ready. Con't PT efforts.
[2024-12-13] MEDS: OXYCODONE IR 5 MG TABLET PO ×3 (14:11→23:42)
--- NOTE | 2024-12-13 14:37 | SUR.PHASEI ---
Pt transferred to room 206 in bed with belongings bag, personal bag cane and glasses. SBAR report to Shyanne TRAYLOR.
[2024-12-13 16:02] LABS: Hematocrit 36.6 % (36-46); Hemoglobin 12.4 g/dL (12.0-16.0)
--- NOTE | 2024-12-13 16:22 | PC.NURSE ---
Pt arrived 1435 Denies discomfort at this time. Sukhdeep wrap to right knee knee CDI SL left arm intact/patent. Pt taking po food & fluids. PT here to assist to chair. Pt tolerated well. Call light w/in reach. Pt calls appropriately for needs. Continue w/plan of care.
--- NOTE | 2024-12-13 16:41 | PT.IIE ---
Current Diagnoses Unilateral primary osteoarthritis, right knee (12/13/24) Surgery Performed Operation Date: 12/13/24 10:15 Actual Procedures p Unicompartment Knee Arthroplasty - Robot medial(Right) - Nathaniel Manley MD Surgical History (Last Reviewed 05/25/24 @ 08:56 by Liv Patel DO) H/O breast surgery H/O: hysterectomy History of bunionectomy History of lumpectomy Status post hysterectomy Medical History (Last Updated 11/23/24 @ 14:48 by Nathaniel Manley MD) Ankle fracture Diverticulitis Primary osteoarthritis of right knee Wrist fracture Physical Therapy Inpatient Evaluation/Re-Eval M1 PT/OT-IP Prior Functional Status Start: 12/13/24 16:16 Freq: NEEDED Status: Active Protocol: Document 12/13/24 15:48 MB (Rec: 12/13/24 16:40 MB Desktop) Medical Review Prior Functional Status Medical History Yes Reviewed Diet/Fluid Regular Consistency Communication WNLs Mobility and Gait I Activities of Daily I Living and IADL's Social History Household Members spouse,none Living Arrangements House Number of Floors ( One Floor Floors) Number of Stairs To 1 drift wood step and 1 platform step to enter Enter/Railing? Home Environment High Toilet,Walk in Shower Home Equipment Front Wheel Walker,Four Wheel Walker,Hand Held Shower, Grab Bars In Shower Employment Status Retired M2 PT-IP Current Condition Start: 12/13/24 16:16 Freq: NEEDED Status: Active Protocol: Document 12/13/24 15:48 MB (Rec: 12/13/24 16:40 MB Desktop) Physical Therapy Current Condition Current Condition Evaluation Date 12/13/24 Treatment Diagnosis R medial compartment TKA M3 PT-IP Subjective Start: 12/13/24 16:16 Freq: NEEDED Status: Active Protocol: Document 12/13/24 15:48 MB (Rec: 12/13/24 16:40 MB Desktop) Subjective Physical Therapy Visit Type Type Initial Evaluation Visit Start Time 15:48 Visit Stop Time 16:11 Number of EXTRACTION OPERATOR Visits 0 Physical Therapy Visit Comments Patient Comments Pt is agreeable to PT Therapy Pain Assessment Pain When Pain Assessed At Rest Pain Present Pain Present Pain Reported Location Right Knee Intensity 1 Scale Used Numeric (0 - 10) M4 PT-IP Mobility and Gait Start: 12/13/24 16:16 Freq: NEEDED Status: Active Protocol: Document 12/13/24 15:48 MB (Rec: 12/13/24 16:40 MB Desktop) PT-Bed Mobility Assessment Supine to Sit Supine to Sit Contact Guard Assistance,1 Person Assistance,Bedrails Scooting Scooting to Edge of Contact Guard Assistance Bed PT-Transfer Assessment Sit to and From Stand Sit to and from Maximum Assistance,1 Person Assistance,Use of Upper Stand Extremities Equipment Transfer Assistive Gait Belt,Front Wheeled Walker Device Transfers Transfer Destination Chair Transfer Technique Stepping Transfer Ability Level of Assist Moderate Assistance Comments Mobility Comments First attempt to stand, pt has giving way of both legs and PT was not ready with gait belt and so assisted pt with mod A to sit safely and then don belt. Pt with shaking once sitting EOB. BP and HR in LUE: supine 168/ 93, 63; sitting 149/78, 72; standing 142/90, 74; standing 1' 147/75, 75; standing after stepping 157/103 , 82. Gait Assessment Gait Gait Assistance Moderate Assistance Required: Distance (Feet) 2 Able to Maintain Yes Weight Bearing Status During Gait Assistive Devices Assistive Device Gait Belt,Front Wheeled Walker Gait Deviations General Gait Pattern Antalgic,Decreased Stride Length,Decreased Feet Clearance,Flexed Trunk,Step-to Gait Factors Limiting Gait Function Factors Limiting Decreased Activity Tolerance,Decreased Strength, Gait Function Difficulty Following Directions,Incoordination,Limited Range of Motion,Pain,Poor Balance,Poor Safety Awareness PT-Balance Assessment Sitting Balance and Reactions Static Sitting Fair Balance Ability Dynamic Sitting Fair Balance Ability Standing Balance and Reactions Static Standing Poor Balance Ability Dynamic Standing Poor Balance Ability Device Used RW M5 PT-IP Objective Assessments Start: 12/13/24 16:16 Freq: NEEDED Status: Active Protocol: Document 12/13/24 15:48 MB (Rec: 12/13/24 16:40 MB Desktop) Orientation Orientation/Cognition Level of Alertness Alert Orientation Name,Age,Birthday,Month,Date,Year,Day of Week,Place, Situation Language Function No Deficits Noted Ability Safety Awareness Decreased Safety Awareness Memory Description No Deficits Noted Gross Range of Motion Upper Extremity ROM Impairments Defer to OT, no issues noted by PT and pt with some right UE edema and limb restriction of right UE, no BP Lower Extremity ROM Assessment Right Impaired Impairments Knee AROM grossly 5-40 deg in supine Strength Lower Extremity Strength Assessment Right Impaired Comments Strength Comments Right knee buckle with gait and pt does report glute numbness with GS Coordination Assessment Assessment Coordination NT Comments Sensation Assessment Comments Sensation Comments B glute numbness (reported after cleared with nsg and pt and skilled assessment started). Muscle Tone Muscle Tone WNL Yes M6 PT-IP Treatment Start: 12/13/24 16:16 Freq: NEEDED Status: Active Protocol: Document 12/13/24 15:48 MB (Rec: 12/13/24 16:40 MB Desktop) Physical Therapy Treatment Exercises Exercises Ankle Pumps,Gluteal Sets,Quad Sets,Heel Slides Education Education Provided Weight Bearing Status,Safety Other Treatments Other Treatment Safety education Performed M7 PT-IP Assessment and Plan Start: 12/13/24 16:16 Freq: NEEDED Status: Active Protocol: Document 12/13/24 15:48 MB (Rec: 12/13/24 16:40 MB Desktop) PT Summary Assessment and Plan Potential Rehabilitation Good Potential Status of Condition Unstable at Evaluation Summary Impairments Pain,ROM,Strength,Balance,Coordination,Sensation,Bed Mobility,Transfers,Gait,Activity Tolerance Assessment Summary Pt is a 79 y/o female adm for right medial compartment TKA. Her BP is high at rest and does drop with mobility today and she has shaking with mobility. Left up in chair with needs in reach and nsg aware, emesis bag. Pt 's right leg does give way when getting up today as well. She and live on [address] and anticipate d/c tomorrow. They have a drift wood step and so unsure about how they will navigate that, will attempt stair training with one platform step and RW as appropriate next date. Pt presents with limited active right knee flexion this date and ed pt on HS. Goals Bed Mobility Goal Independent Transfer Goal Independent,Front Wheeled Walker,Four Wheeled Walker Gait Goal Independent,Front Wheel Walker,Four Wheel Walker Gait Distance 100 Other Goals Pt will ascend and descend 1 to 2 platform steps with LRAD and no more than CGA to allow safe home entrance. Days to Meet Goals 2 Frequency of Treatment Frequency Of Once a Day Treatment Other frequency 1-2x/day Treatment Plan Physical Therapy Bed Mobility Training,Transfer Training,Gait Training, Treatment Plan Therapeutic Exercise,Balance Retraining,Post Op Education,Discharge Planning,Hot or Cold Pack, Neuromuscular Re-ed,Coordination Retraining,Manual Therapy Weight Bearing Status Weight Bearing Weight Bear as Tolerated Status Recommendations To Nursing Amount of Assist 2 Person Assist Needed Discharge Recommendations PT Discharge Home with 27/01 Assist Available,Outpatient PT Recommendations Transportation Needs Private Vehicle at Discharge - PT assist x1
[2024-12-13] MEDS: DOCUSATE 100 MG CAPSULE PO (20:12)
[2024-12-13] MEDS: IBUPROFEN 600 MG TABLET PO (20:12)
[2024-12-13] MEDS: ASPIRIN EC 81 MG TABLET PO (20:12)
[2024-12-13] MEDS: ACETAMINOPHEN 325 MG TABLET 650 MG PO (20:14)
[2024-12-14] MEDS: ACETAMINOPHEN 325 MG TABLET 650 MG PO ×3 (02:41→14:31)
[2024-12-14] MEDS: OXYCODONE IR 5 MG TABLET PO ×3 (02:42→10:45)
[2024-12-14] MEDS: IBUPROFEN 600 MG TABLET PO ×3 (02:42→14:31)
[2024-12-14] MEDS: CEFAZOLIN 2 GM/100 ML PREMIX 100 ML IV (02:43)
[2024-12-14 05:48] LABS: Hematocrit 33.1 % (36-46); Hemoglobin 11.4 g/dL (12.0-16.0)
[2024-12-14 05:57] LABS: BUN Creatinine Ratio 22.2 (6-22); Blood Urea Nitrogen 12 mg/dL (7-17); Calcium 8.7 mg/dL (8.4-10.2); Carbon Dioxide 27 mmol/L (22-32); Chloride 98 mmol/L (98-107); Estimated Glomerular Filt Rate > 60 mL/min (>60); Glucose 102 mg/dL (70-99); HEMOLYSIS < 15 (0-50); Potassium 3.7 mmol/L (3.4-5.1); Sodium 130 mmol/L (137-145)
[2024-12-14] MEDS: PANTOPRAZOLE DR 40 MG TABLET PO (06:21)
[2024-12-14] MEDS: TRAMADOL 50 MG TABLET PO ×2 (08:31→14:31)
[2024-12-14] MEDS: ASPIRIN EC 81 MG TABLET PO (08:31)
[2024-12-14] MEDS: DOCUSATE 100 MG CAPSULE PO (08:31)
[2024-12-14] MEDS: SODIUM CHLORIDE 0.9% FLUSH 10 ML IV (08:32)
--- NOTE | 2024-12-14 08:43 | PM.DS.IH.1 ---
History of Present Illness History of Present Illness Chief complaint: Right Unicompartment Knee Arthroplasty - Robot Narrative: PROGRESS NOTE PATIENT SUMMARY: The patient is currently being prepared for discharge following a partial right knee replacement. PAST SURGICAL HISTORY: - Partial right knee replacement of the medial compartment performed by me yesterday SUBJECTIVE: The patient discussed her blood pressure being episodic rather than continuous. She expressed concern about pain management post-surgery and inquired about the use of tramadol and acetaminophen. The importance of mobility to prevent blood clots was discussed, and the patient expressed understanding of post-operative care instructions, including the use of an ice machine for pain management. PHYSICAL EXAM: Constitutional: - Patient is alert and oriented, participating actively in the discussion, and shows understanding of post-operative instructions. Musculoskeletal: - Sukhdeep wrap in place with no bleeding. Flexes/extends hallux and ankle. Toes warm and well perfused. ASSESSMENT: POD1 Medial UKA with routine recovery PLAN: -WBAT -DC home today. Patient [place] friend [place] -Ice provided thus far has not been adequate as it has not gotten her surgical site cold and she notes that she has pain in the area. She has a Breg Polar Cube and since we have been unable to adequately ice her knee with the equipment available in the hospital I have asked her to have her family bring that so it can be used for pain control as this is vastly preferable to her taking additional opioids -Detailed DC instructions available on Youtube which patient has previously reviewed -Meds sent previously -FU 2 weeks at [facility] DISPOSITION: The patient is planned for discharge home today, with instructions to continue post-operative care and follow-up as needed. Discharge Providers Provider Discharge Date: 12/14/24 Primary care physician: Anika Bowman MD Consults: 12/13/24 09:48 Consult to Anesthesiology Routine Comment: Consulting Provider: Anesthesiologist Reason for consultation: Regional block for post operative pain control 12/13/24 12:50 Consult to Discharge Planning Routine Comment: Consult to Physical Therapy Evaluate & Treat Comment: Physician Instructions: Evaluate and Treat 12/13/24 14:26 Consult to Discharge Planning Routine Comment: Consult to Physical Therapy Evaluate & Treat Comment: Physician Instructions: postop TKA protocol Discharge provider: Nathaniel Manley MD Exam Vital Signs (past 8 hours): Oxygen Delivery Method Room Air Oxygen Flow Rate 0 Objective Labs 12/14/24 05:10 12/14/24 05:10 Labs: Laboratory Results - last 24 hr 12/13/24 12/14/24 15:55 05:10 Hgb 12.4 11.4 L Hct 36.6 33.1 L Sodium 130 L Potassium 3.7 Chloride 98 Carbon Dioxide 27 BUN 12 Creatinine 0.54 Estimated GFR > 60 BUN/Creatinine Ratio 22.2 H Glucose 102 H Calcium 8.7 PFSH Medical History (Updated 11/23/24 @ 14:48 by Nathaniel Manley MD) Primary osteoarthritis of right knee Diverticulitis Ankle fracture Wrist fracture Surgical History H/O: hysterectomy History of bunionectomy H/O breast surgery History of lumpectomy Status post hysterectomy Family History Child Age: 58 Mental health problem Grandmother Hypertension Sister Age: 73 Mental health problem Social History household members: spouse and none Smoking Status: Never smoker alcohol intake: never Discharge Plan Discharge orders & Medications Prescriptions: No Action telmisartan 20 mg tablet 20 mg PO DAILY albuterol sulfate 90 mcg/actuation HFA aerosol inhaler 1 puff inhalation Q6H PRN (Reason: wheeze) aspirin 81 mg tablet,delayed release (DR/EC) 81 mg PO BID 45 Days Qty: 90 0RF meloxicam 7.5 mg tablet 7.5 mg PO DAILY PRN (Reason: post-op pain) Qty: 30 0RF docusate sodium [Colace] 100 mg capsule 100 mg PO BID PRN (Reason: constipation) Qty: 60 0RF tramadol 50 mg tablet 50 mg PO Q6H PRN (Reason: pain) Qty: 25 0RF esomeprazole magnesium [Nexium] 40 mg capsule,delayed release(DR/EC) 40 mg PO DAILY Qty: 30 0RF Follow up/Referrals: Anika Bowman MD [Primary Care Provider, Family Practice] Visit Report/Discharge Packet Print Language: Montenegrin Discharge Data Primary Care Provider: Anika Bowman Attending Provider: Nathaniel Manley VTE Deep Vein Thrombosis/Pulmonary Embolism Present on Admission: No IH PROFEE Charge Codes Discharge inpatient/observation: 67524
[2024-12-14 10:26] VITALS: BP 179/87; PULSE 88; RESP 15; TEMP 36.7; O2SAT 96
--- NOTE | 2024-12-14 11:12 | PT.IPTN ---
Current Diagnoses Unilateral primary osteoarthritis, right knee (12/13/24) Surgery Performed Operation Date: 12/13/24 10:15 Actual Procedures p Unicompartment Knee Arthroplasty - Robot medial(Right) - Nathaniel Manley MD Physical Therapy Treatment Note M2 PT-IP Current Condition Start: 12/13/24 16:16 Freq: NEEDED Status: Active Protocol: Document 12/13/24 15:48 MB (Rec: 12/13/24 16:40 MB Desktop) Physical Therapy Current Condition Current Condition Evaluation Date 12/13/24 Treatment Diagnosis R medial compartment TKA M3 PT-IP Subjective Start: 12/13/24 16:16 Freq: NEEDED Status: Active Protocol: Document 12/14/24 11:12 AB (Rec: 12/14/24 12:35 AB [id number]) Subjective Physical Therapy Visit Type Type Treatment Note Visit Start Time 11:12 Visit Stop Time 11:55 Number of AUTOMATION QA LEAD Visits 0 Physical Therapy Visit Comments Patient Comments agreeable to do PT Therapy Pain Assessment Pain When Pain Assessed At Rest Pain Present Pain Present Pain Reported Location Right Knee Intensity 4 Scale Used Numeric (0 - 10) Pain Behaviors Guarding Pain Management Apply Cold,Distraction,Modification of Treatment,Re- Techniques positioning,Timing of Activity with Medications M4 PT-IP Mobility and Gait Start: 12/13/24 16:16 Freq: NEEDED Status: Active Protocol: Document 12/14/24 11:12 AB (Rec: 12/14/24 12:35 AB [id number]) PT-Bed Mobility Assessment Supine to Sit Supine to Sit Standby Assistance PT-Transfer Assessment Sit to and From Stand Sit to and from Contact Guard Assistance,1 Person Assistance,Use of Stand Upper Extremities Equipment Transfer Assistive Gait Belt,Front Wheeled Walker Device Orthotic/Prosthetic No Devices or Brace: Transfers Transfer Destination Chair Transfer Technique ambulated Transfer Ability Level of Assist Contact Guard Assistance,1 Person Assistance,Use of Upper Extremities Comments Mobility Comments pt in bed and spouse in room. pt agreed to do PT. completed heel slides in bed prior to moving. educated spouse on how to assist pt with heel slides. BP: 174/ 80. c/o 4/10 R knee pain. supine to sit SBA. able to sit on EOB SBA. no c/o dizziness. educated spouse on how to use safety belt. spouse was able to put safety belt on pt. completed sit to stand from EOB CGA and cues for techniques. pt ambulated to the chair using FWW CGA. educated spouse and pt on stair climbing. spouse assisted pt with ambulation using fWW ~ 25 ft CGA. pt completed up/down platform step using FWW with PT assisting min A and cueing pt on first attempt and pt repeated again with spouse assisting. pt ambulated back to her chair using fWW CGA with spouse assisting. educated pt on car transfers. positioned pt on the chair. call light and table placed within reach. pt and spouse without further concerns. Gait Assessment Gait Gait Assistance Contact Guard Assist Required: Distance (Feet) 25 Able to Maintain Yes Weight Bearing Status During Gait Assistive Devices Assistive Device Gait Belt,Front Wheeled Walker Orthotic/Prosthetic No Devices or Brace: Gait Deviations General Gait Pattern Antalgic,Decreased Stride Length,Decreased Feet Clearance,Step-to Gait Factors Limiting Gait Function Factors Limiting Decreased Activity Tolerance,Decreased Sensation, Gait Function Decreased Strength,Difficulty Following Directions, Limited Range of Motion,Pain,Poor Balance,Poor Safety Awareness Stair Climbing Assessment Evaluation Level of Assist On Minimal Assistance,1 Person Assistance Stairs Devices Stair Climbing Front Wheel Walker Assistive Devices Technique/Endurance Stair Climbing Ascend and Descend Direction Stair Climbing Step to Step Technique Number of Steps 1 Climbed Stair Climbing Set # 2 Repetitions (reps) M5 PT-IP Objective Assessments Start: 12/13/24 16:16 Freq: NEEDED Status: Active Protocol: Document 12/13/24 15:48 MB (Rec: 12/13/24 16:40 MB Desktop) Orientation Orientation/Cognition Level of Alertness Alert Orientation Name,Age,Birthday,Month,Date,Year,Day of Week,Place, Situation Language Function No Deficits Noted Ability Safety Awareness Decreased Safety Awareness Memory Description No Deficits Noted Gross Range of Motion Upper Extremity ROM Impairments Defer to OT, no issues noted by PT and pt with some right UE edema and limb restriction of right UE, no BP Lower Extremity ROM Assessment Right Impaired Impairments Knee AROM grossly 5-40 deg in supine Strength Lower Extremity Strength Assessment Right Impaired Comments Strength Comments Right knee buckle with gait and pt does report glute numbness with GS Coordination Assessment Assessment Coordination NT Comments Sensation Assessment Comments Sensation Comments B glute numbness (reported after cleared with nsg and pt and skilled assessment started). Muscle Tone Muscle Tone WNL Yes M6 PT-IP Treatment Start: 12/13/24 16:16 Freq: NEEDED Status: Active Protocol: Document 12/14/24 11:12 AB (Rec: 12/14/24 12:35 AB [id number]) Physical Therapy Treatment Exercises Exercises Heel Slides,Seated Knee Flexion/Extension Education Education Provided Precautions,Weight Bearing Status,Post-Op Packet,Safety M7 PT-IP Assessment and Plan Start: 12/13/24 16:16 Freq: NEEDED Status: Active Protocol: Document 12/14/24 11:12 AB (Rec: 12/14/24 12:35 [id number]) PT Summary Assessment and Plan Potential Rehabilitation Good Potential Status of Condition Stable at Evaluation Summary Impairments Pain,ROM,Strength,Balance,Coordination,Sensation,Tone, Cognition,Bed Mobility,Transfers,Gait,Activity Tolerance Progress Towards Progressing Toward Goals Goals Assessment Summary pt requiring CGA with ambulation using fWW and min A for stair climbing. caregiver training conducted and spouse was able to assist pt safely. pt plans to go home and spouse to assist. pt has out PT PT set up. Goals Bed Mobility Goal Independent Transfer Goal Independent,Front Wheeled Walker,Four Wheeled Walker Gait Goal Independent,Front Wheel Walker,Four Wheel Walker Gait Distance 100 Other Goals Pt will ascend and descend 1 to 2 platform steps with LRAD and no more than CGA to allow safe home entrance. Days to Meet Goals 2 Frequency of Treatment Frequency Of Twice a Day Treatment Treatment Plan Physical Therapy Bed Mobility Training,Transfer Training,Gait Training, Treatment Plan Therapeutic Exercise,Balance Retraining,Post Op Education,Discharge Planning,Hot or Cold Pack, Neuromuscular Re-ed,Coordination Retraining,Manual Therapy Weight Bearing Status Weight Bearing Weight Bear as Tolerated Status Allowed Weight RLE WBAT Bearing Amount ( enter % or #) (%) Discharge Recommendations PT Discharge Home with Assistance,Outpatient PT Recommendations Transportation Needs Private Vehicle at Discharge - PT assist 1
[2024-12-14 11:59] VITALS: BP 155/88
--- NOTE | 2024-12-14 12:28 | CM.DANOTE ---
Initial DCP Assessment Visit Note Reviewed EMR and team rounds for status updates. Went to meet with pt in the room, however she was actively working with PT at the time. Pt lives in her own home [address], she is currently from her spouse, and is very active at baseline. Pt states [facility] will transport her home this afternoon, as she has been medically cleared for discharge. No CM d/c assistance or resource needs were identified during her stay. Payor: [employer] Attending: Dr. Manley Pt is a 79 year-old F post-op day 1 from a R-total knee arthroplasty surgery. She has a hx of worsening R-knee pain that has now severely impacted her quality of life and ability to engage in daily activities, and conservative efforts at pain control have not provided lasting relief. She did well postoperatively, pain is well controlled, and plan is d/c home with OP PT f/u. No further CM d/c assistance identified at this time. Discharge Planning/Care Management CM Discharge Assessment Start: 12/13/24 08:05 Freq: Status: Active Protocol: Document 12/14/24 12:26 DPL (Rec: 12/14/24 12:28 DPL [id number]) Discharge Planning Assessment Assigned Discharge LESLIE Collier Driving Instructor Advance Directives? Yes Advance Directives No on File History Provided By Medical Record Expected Length of 1 Stay Has Patient been No admitted in last 30 days? Prior Living House Arrangements Household Members spouse,none Type of Drives own vehicle transporation used prior to admit Independent with ADL No: Limited activity, uses a walking pole 's Is patient alert and Yes oriented? Comment N/A Caregiver for No Another DME Already Rented / Elevated Toilet Seat,FWW / Walker Owned Comment 4WW Patient/Family OP PT Therapy Preference Barriers to No Discharge Discharge Plan Home Referrals Initiated None needed Whiteboard Updated No in Patient Room with name and ext. # of Topographical Field Assistant Review Status In Process Please Provide Date 12/14/24 Initial DC Assessment Was Performed Pre-Anesthesia Assessment Start: 12/09/24 08:37 Freq: Status: Active Protocol: Document 12/09/24 08:37 CAB (Rec: 12/09/24 08:48 CAB [id number]) Pre-Anesthesia Assessment PAC Comment Chart review 12/09/24 Patient Information Chart Review Reviewed Via Primary Care Anika Bowman Provider Seen Specialist in Yes Last 12 Months Specialist Seen Orthopedist Primary Language Syrian High Speed Printer Operator Required No Height 170.18 cm Weight 63.503 kg Body Mass Index (BMI 21.9 ) Anesthesia Review No Requested Armature Winder No Pain Present Pain Reported Musculoskeletal Difficulty Walking,Joint Pain Symptoms Patient is No completely paralyzed or completely immobile Mental Status Oriented to own ability Comment Uses a trekking pole for support Is patient on oxygen No ? Hx Sleep Apnea No Currently Taking a No Beta Iesha Anti-Coagulant No Therapy Cardiac Testing No Hx Pacemaker/ICD No Pacemaker Rep No Required? Cardiac Clearance No Received Urinary Catheter No Present Hx Urinary Self No Catheterization Diabetes No Patient No Lactating No Marital Status Patient Discharge Return Home Plan Description Comment [place] on [address] Advance Directives? No
--- NOTE | 2024-12-14 15:55 | PC.NURSE ---
Pt discharged home at 1448, escorted off floor in wheelchair accompanied by spouse, friend and hospital staff. IV removed, discharge teaching completed including new medications, wound care, and follow up appointment. Pt left the floor with all belongings.
== END 2024-12-14 14:48 | disposition home or self-care (01) ==
LOC: OR 07:38 → AC 07:43
PROVIDERS: Physician Assistant Surgical; PCP Family Medicine; Referring Provider Orthopaedic Surgery Adult Reconstructive Orthopaedic Surgery; Visit Provider Orthopaedic Surgery Adult Reconstructive Orthopaedic Surgery
PROC: (CPT 27446; principal; 2024-12-13 10:15)
DX: M17.11 Unilateral primary osteoarthritis, right knee (principal)
CPT/HCPCS: 27446; 20985; 36415; 73560; 80048; 85014; 85018; 97116; 97161; 97530; C1776; C1713; J0131; J0690; J1885; J2250; J2704; J3010